=== PATIENT | female | born 1985 | race Caucasian/White ===

== ENCOUNTER → 2019-07-20 09:32 | Outpatient (CLI) | payer OTHER, SELFPAY | DX: Z39.1 Encounter for care and examination of lactating mother (principal) | CPT/HCPCS: 96158 ==

== ENCOUNTER → 2019-08-18 11:55 | Outpatient (CLI) | payer OTHER, SELFPAY | DX: Z39.1 Encounter for care and examination of lactating mother (principal) | CPT/HCPCS: 96158 ==

== ENCOUNTER 2019-11-06 09:20 | Outpatient (CLI) | payer OTHER, SELFPAY | END 2019-11-06 09:47 | disposition home or self-care (01) | LOC: TELEHEALTH 11-08 13:17 | PROVIDERS: Visit Provider Registered Nurse Lactation Consultant | DX: Z39.1 Encounter for care and examination of lactating mother (principal) | CPT/HCPCS: 96158 ==